=== PATIENT | male | born 1965 | race Caucasian/White ===

== ENCOUNTER 2018-07-14 11:21 | Emergency (ER) | payer BC ==
[~2018-07-14] VITALS: Ht 182.9 cm; Wt 104.3 kg
[2018-07-14 11:33] VITALS: BP_SYST 130
[2018-07-14] MEDS ORDERED: MORPHINE 4 MG/ML INJ. SYRINGE IM ONE (12:00)
[2018-07-14 12:45] VITALS: BP_SYST 125
== END 2018-07-14 12:45 | disposition home or self-care (01) ==
LOC: SED 11:21
DX: G89.29 Other chronic pain (principal); M54.5 Low back pain
CPT/HCPCS: 99283; 96372; J2270